=== PATIENT | female | born 2000 | race Caucasian/White ===

== ENCOUNTER 2023-03-09 21:09 | Inpatient (IN) | payer OTHER, BC ==
[2023-03-09 23:20] VITALS: BMI 26.4
[2023-03-09] MEDS ORDERED: Ketorolac Tromethamine 30 MG/ML VIAL IVP PRN (23:27)
[2023-03-09] MEDS ORDERED: Morphine 4 MG/ML VIAL SLOW IVP PRN (23:28)
[2023-03-09] MEDS ORDERED: traMADol HCl 50 MG TAB PO PRN (23:28)
[2023-03-09] MEDS ORDERED: Ondansetron PF 4 MG/2 ML Vial IVP PRN (23:29)
[2023-03-09] MEDS ORDERED: Ketorolac Tromethamine 30 MG/ML VIAL IVP SCH (23:30)
[2023-03-09] MEDS ORDERED: Lactated Ringer's 1,000 ML IV SCH (23:30)
[2023-03-09] MEDS: Acetaminophen 500 MG TAB PO SCH (23:55)
[2023-03-10] MEDS ORDERED: traMADol HCl 50 MG TAB PO PRN (03:15)
[2023-03-10] MEDS: traMADol HCl 50 MG TAB PO SCH ×4 (05:43→23:52)
[2023-03-10] MEDS: Acetaminophen 500 MG TAB PO SCH ×4 (05:43→23:53)
[2023-03-10] MEDS: Ketorolac Tromethamine 30 MG/ML VIAL IVP SCH ×4 (05:46→23:52)
[2023-03-10 06:04] LABS: #Eosinphils 0.1 thou/uL (0.0-0.7); #Monocytes 0.9 thou/uL (0.11-0.59); #Neutrophils 7.1 thou/uL (1.40-6.50); %Basophils 0.4 % (0.0-1.0); %Eosinophils 1.1 % (0.0-10.0); %Lymphocytes 23.6 % (28.0-48.0); %Monocytes 8.2 % (0.0-4.0); %Neutrophils 66.2 % (31.0-61.0); Hematocrit 33.9 % (36.0-47.0); Mean Corpuscular HGB CONC 32.4 g/dL (32.0-36.0); Mean Corpuscular Hemoglobin 30.3 pg (25.0-35.0); Mean Corpuscular Volume 93.4 fl (78.0-98.0); Platelet Count 242 10x3/uL (130-400); RBC Distribution Width 13.6 % (11.5-14.5); Red Blood Cell (RBC) Count 3.63 mill/uL (4.00-5.20); White Blood Cell (WBC) Count 10.7 10x3/uL (4.8-10.8)
[2023-03-10 06:25] LABS: ALT (SGPT) 12 U/L (8-55); AST (SGOT) 16 U/L (5-34); Albumin 3.6 g/dL (3.5-5.0); Alkaline Phosphatase 59 U/L (40-100); Anion Gap 10 mmol/L (10-20); BUN (Urea Nitrogen) 10 mg/dL (7.0-18.7); Bilirubin, Total 0.5 mg/dL (0.2-1.2); Calc. Creatinine Clearance 129 mL/min (70-130); Calcium 8.6 mg/dL (7.8-10.44); Carbon Dioxide 24 mmol/L (22-29); Chloride 106 mmol/L (98-107); Estimated GFR 110; Globulin 2.3 g/dL (2.4-3.5); Glucose 95 mg/dL (70-105); Potassium 3.9 mmol/L (3.5-5.1); Protein, Total 5.9 g/dL (6.0-8.3); Sodium 136 mmol/L (136-145)
[2023-03-10] MEDS ORDERED: Gabapentin 100 MG CAP PO SCH (09:00)
[2023-03-10] MEDS: Gabapentin 300 MG CAP PO SCH ×3 (09:41→20:45)
[2023-03-10] MEDS: Polyethylene Glycol 3350 17 GM Packet PO SCH (09:41)
[2023-03-10] MEDS ORDERED: SUMAtriptan Succinate 50 MG TAB PO PRN (16:42)
[2023-03-11] MEDS: Acetaminophen 500 MG TAB PO SCH ×2 (06:30→12:04)
[2023-03-11] MEDS: traMADol HCl 50 MG TAB PO SCH ×2 (06:30→12:05)
[2023-03-11] MEDS: Polyethylene Glycol 3350 17 GM Packet PO SCH (08:44)
[2023-03-11] MEDS: Gabapentin 300 MG CAP PO SCH (08:44)
[2023-03-11 11:43] VITALS: BP 114/77; TEMP 98.6
== END 2023-03-11 14:47 | disposition home or self-care (01) | DRG 551 ==
LOC: SURG B 22:32
PROVIDERS: ADMIT Specialist; ATTEND Specialist
DX: S32.10XA Unspecified fracture of sacrum, initial encounter for closed fracture (principal); S32.492A Other specified fracture of left acetabulum, initial encounter for closed fracture; S32.592A Other specified fracture of left pubis, initial encounter for closed fracture; S32.302A Unspecified fracture of left ilium, initial encounter for closed fracture; Z98.890 Other specified postprocedural states; V89.2XXA Person injured in unspecified motor-vehicle accident, traffic, initial encounter
CPT/HCPCS: 36415; 80053; 85025; J1885; J2270; J2405; J7120